=== PATIENT | male | born 1995 ===

== ENCOUNTER 2024-12-16 20:55 | Emergency (ER) | payer BC ==
[2024-12-16 21:00] VITALS: RESP 18
[2024-12-16] MEDS: KETOROLAC 15 MG/ML 1 ML VIAL IVP STA (21:34)
[2024-12-16] MEDS: LACTATED RINGERS 1,000 ML IV ONE (21:36)
--- NOTE | 2024-12-16 21:42 | ED ---
General Adult HPI - General Chief complaint: Urogenital Stated complaint: Blood in Urine Time Seen by Provider: 12/16/24 21:10 Source: patient, RN notes reviewed, old records reviewed Mode of arrival: ambulatory Limitations: no limitations - History of Present Illness Initial comments: Patient is a 29-year-old male who presents emergency department complaining of hematuria as well as abdominal pain. Has a history of UTIs. States this is si milar. History of cholecystectomy. No other significant past medical history. No concern for STDs. No history of STDs. Patient has noticed some increased urinary frequency, dysuria, hematuria ongoing for 1 day. Recent UTI and completed an entire course of antibiotics 2 to 3 weeks ago. Endorses some bilateral flank pain, right worse than left. Some bilateral back pain as well. Presents for further evaluation at this time. No history of kidney stones. Denies any nausea. Denies any diarrhea. Denies any fevers. Presents for further evaluation. - Related Data Previous Rx's Medication Instructions Recorded Ciprofloxacin HCl [Cipro] 500 mg PO Q12HR 7 Days #14 tab 12/16/24 Allergies Allergy/AdvReac Type Severity Reaction Status Date / Time No Known Allergies Allergy Verified 12/16/24 21:00 Review of Systems ROS Statement: Those systems with pertinent positive or pertinent negative responses have been documented in the HPI. Review of Systems: CONST: Denies fever EYES: Denies blurry vision ENT: Denies nasal congestion C/V: Denies Chest pain RESP: Denies shortness of breath GI: Endorses abdominal pain : Endorses dysuria SKIN: Denies rash. MSK: Denies joint pain. NEURO: Denies headache ROS Other: All systems not noted in ROS Statement are negative. Past Medical History Past Medical History: No Reported History History of Any Multi-Drug Resistant Organisms: None Reported Past Surgical History: Cholecystectomy Past Psychological History: No Psychological Hx Reported Smoking Status: Never smoker Past Alcohol Use History: None Reported Past Drug Use History: None Reported General Exam - General Exam Comments Initial Comments: General: Appears in no acute distress. HEAD: Normal with no signs of head trauma. EYES: EOMI ENT: Hearing grossly intact, normal oropharynx. RESPIRATORY: Clear breath sounds bilaterally. No wheezes, rales, or rhonchi. C/V: Regular rate and rhythm. S1 and S2 auscultated. ABD: Abdomen is soft, nondistended. Mildly tender to palpation in the suprapubic region as well as some mild tenderness with CVA percussion bilaterally. No guarding or rebound tenderness. No peritoneal signs. EXT: No obvious deformity SKIN: No rashes or lesions observed on exposed skin. NEURO: Alert and oriented x 4. Limitations: no limitations Course Vital Signs 12/16/24 12/16/24 20:58 23:37 Temperature 98 F 98.4 F Pulse Rate 84 76 Respiratory 18 18 Rate Blood Pressure 147/95 134/92 O2 Sat by Pulse 98 99 Oximetry Medical Decision Making - Medical Decision Making Was pt. sent in by a medical professional or institution (, [facility], [employer], urgent care, hospital, or intermediate...) When possible be specific @ -No Did you speak to anyone other than the patient for history (EMS, parent, family, police, friend...)? What history was obtained from this source @ -No Did you review nursing and triage notes (agree or disagree)? Why? @ -I reviewed and agree with nursing and triage notes Were old charts reviewed (outside hosp., previous admission, EMS record, old EKG, old radiological studies, urgent care reports/EKG's, intermediate records)? Report findings @ -No old charts were reviewed Differential Diagnosis (chest pain, altered mental status, abdominal pain women, abdominal pain men, vaginal bleeding, weakness, fever, dyspnea, syncope, headache, dizziness, GI bleed, back pain, seizure, CVA, palpatations, mental health, musculoskeletal)? @ -UTI, kidney stone, pyelonephritis, STI. This list is not all inclusive. EKG interpreted by me (3pts min.). @ -None done X-rays interpreted by me (1pt min.). @ -None done CT interpreted by me (1pt min.). @ -CT abdomen pelvis reveals no evidence of acute intra-abdominal process to explain the patient's urinary symptoms. U/S interpreted by me (1pt. min.). @ -None done What testing was considered but not performed or refused? (CT, X-rays, U/S, labs)? Why? @ -None What meds were considered but not given or refused? Why? @ -None Did you discuss the management of the patient with other professionals (professionals i.e. , PA, TRUCK FARMER, lab, RT, psych nurse, social service agency director, histologic aide, teacher, fire management officer, clinical case manager)? Give summary @ -No Was smoking cessation discussed for >3mins.? @ -No Was critical care preformed (if so, how long)? @ -No Were there social determinants of health that impacted care today? How? (Homelessness, low income, unemployed, alcoholism, drug addiction, transportation, low edu. Level, literacy, decrease access to med. care, prison, rehab)? @ -No Was there de-escalation of care discussed even if they declined (Discuss DNR or withdrawal of care, Hospice)? DNR status @ -No What co-morbidities impacted this encounter? (DM, HTN, Smoking, COPD, CAD, Cancer, CVA, ARF, Chemo, Hep., AIDS, mental health diagnosis, sleep apnea, morbid obesity)? @ -None Was patient admitted / discharged? Hospital course, mention meds given and route, prescriptions, significant lab abnormalities, going to OR and other pertinent info. @ -Patient presents with symptoms concerning for possible UTI, pyelonephritis, or kidney stone. No concern for STIs at this time. Patient. He is in a monogamous relationship with no history is of them. He is having hematuria, dysuria, as well as increased frequency. Vitals are within acceptable limits. We will obtain abdominal labs, urinary studies, as well as CT abdomen pelvis without contrast. He was in agreement this plan. Provided with 1 L fluid bolus as well as IV Toradol. CT returned unremarkable. Laboratory studies returned unremarkable except for hematuria. Suspect UTI as well considering the number of white blood cells present in his urine. I discussed results with patient. He expressed understanding. He will be given a dose of IV Rocephin as well as started on ciprofloxacin. I will send a pre scription for Cipro to his pharmacy. Urine culture will be sent. He was in agreement this plan. I will provide the patient with a prescription for ciprofloxacin. I instructed the patient to follow up with their PCP in the next 1-3 days. I provided contact information for follow up with urology. I explained that the patient should return to the emergency department if they experience any worsening symptoms. Strict return precautions were discussed with the patient. The patient expressed understanding of these instructions. I answered all questions that the patient had. The patient was discharged home in good condition with their prescriptions and follow up information. Undiagnosed new problem with uncertain prognosis? @ -No Drug Therapy requiring intensive monitoring for toxicity (Heparin, Nitro, Insulin, Cardizem)? @ -No Were any procedures done? @ -No Diagnosis/symptom? @ -UTI Acute, or Chronic, or Acute on Chronic? @ -Acute Uncomplicated (without systemic symptoms) or Complicated (systemic symptoms)? @ -Uncomplicated Side effects of treatment? @ -None Exacerbation, Progression, or Severe Exacerbation] @ -No Poses a threat to life or bodily function? @ -Unlikely at this time - Lab Data Result diagrams: 12/16/24 21:30 12/16/24 21:30 Lab Results 12/16/24 12/16/24 12/16/24 Range/Units 21:30 21: 21:30 WBC 7.04 (4.50-10.00) 10*3/uL RBC 5.53 (4.40-5.60) 10*6/uL Hgb 15.2 (13.0-17.0) g/dL Hct 45.4 (39.6-50.0) % MCV 82.1 (80.0-97.0) fL MCH 27.5 (27.0-32.0) pg MCHC 33.5 (32.0-37.0) g/dL Plt Count 234 (140-440) 10*3/uL MPV 9.8 (9.5-12.2) fL Immature Gran % (Auto) 0.1 % Neutrophils % 53.1 % Lymphocytes % 36.2 % Monocytes % 9.1 % Eosinophils % 1.4 % Basophils % 0.1 % Immature Gran # 0.01 (0.00-0.04) 10*3/uL Neutrophils # 3.73 (1.80-7.70) 10*3/uL Lymphocytes # 2.55 (0.90-5.00) 10*3/uL Monocytes # 0.64 (0.20-1.00) 10*3/uL Eosinophils # 0.10 (0.04-0.35) 10*3/uL Basophils # 0.01 (0.00-0.10) 10*3/uL Sodium 140 (137-145) mmol/L Potassium 4.7 (3.5-5.1) mmol/L Chloride 101 (98-107) mmol/L Carbon Dioxide 29 (22-30) mmol/L Anion Gap 10 mmol/L BUN 22 H (9-20) mg/dL Creatinine 1.21 (0.66-1.25) mg/dL Est GFR (CKD-EPI)AfAm >90 (>60 ml/min/1.73 sqM) Est GFR (CKD-EPI)NonAf 80 (>60 ml/min/1.73 sqM) Glucose 100 H (74-99) mg/dL Calcium 9.4 (8.4-10.2) mg/dL Total Bilirubin 1.0 (0.2-1.3) mg/dL AST 47 (17-59) U/L ALT 65 H (4-49) U/L Alkaline Phosphatase 46 (38-126) U/L Total Protein 7.4 (6.3-8.2) g/dL Albumin 4.4 (3.5-5.0) g/dL Lipase 101 (23-300) U/L Urine Color Red Urine Appearance Turbid (Clear) Ur Leukocyte Esterase Negative (Negative) Urine RBC >182 H (0-5) /hpf Urine WBC >182 H (0-5) /hpf Ur Squamous Epith Cells 14 H (0-4) /hpf Urine Bacteria Rare H (None) /hpf Urine Mucus Few H (None) /hpf Disposition Clinical Impression: UTI (urinary tract infection), Hematuria Disposition: HOME SELF-CARE Condition: Good Instructions (If sedation given, give patient instructions): Urinary Tract Infection in Men (ED) Prescriptions: Ciprofloxacin HCl [Cipro] 500 mg PO Q12HR 7 Days #14 tab Is patient prescribed a controlled substance at d/c from ED?: No Referrals: Adan Juarez MD [Primary Care Provider] - 1-2 days Rodrigo Farley MD [STAFF PHYSICIAN] - 1-2 days Time of Disposition: 23:28
[2024-12-16 21:44] LABS: Basophils # (A) 0.01 10*3/uL (0.00-0.10); Basophils % (A) 0.1 %; Eosinophils % (A) 1.4 %; HCT 45.4 % (39.6-50.0); HGB 15.2 g/dL (13.0-17.0); Lymphocytes # (A) 2.55 10*3/uL (0.90-5.00); Lymphocytes % (A) 36.2 %; MCH 27.5 pg (27.0-32.0); MCHC 33.5 g/dL (32.0-37.0); MCV 82.1 fL (80.0-97.0); Mean Platelet Volume 9.8 fL (9.5-12.2); Monocytes # (A) 0.64 10*3/uL (0.20-1.00); Monocytes % (A) 9.1 %; Neutrophils # (A) 3.73 10*3/uL (1.80-7.70); Neutrophils % (A) 53.1 %; Platelet Count 234 10*3/uL (140-440); RBC 5.53 10*6/uL (4.40-5.60); RDW 12.1 % (11.5-14.5); WBC 7.04 10*3/uL (4.50-10.00)
[2024-12-16 22:04] LABS: Bacteria,Urine Rare /hpf; Mucus,Urine Few /hpf; Squamous Epithelial Cell,Urine 14 /hpf (0-4)
[2024-12-16 22:06] LABS: ALT 65 U/L (4-49); AST 47 U/L (17-59); African American GFR (CKD) >90 (>60 ml/min/1.73 sqM); Albumin 4.4 g/dL (3.5-5.0); Alkaline Phosphatase 46 U/L (38-126); Anion Gap 10 mmol/L; Blood Urea Nitrogen 22 mg/dL (9-20); Calcium 9.4 mg/dL (8.4-10.2); Carbon Dioxide 29 mmol/L (22-30); Chloride 101 mmol/L (98-107); Glucose 100 mg/dL (74-99); Lipase 101 U/L (23-300); Non-African American GFR(CKD) 80 (>60 ml/min/1.73 sqM); Sodium 140 mmol/L (137-145); Total Protein 7.4 g/dL (6.3-8.2)
--- NOTE | 2024-12-16 22:07 | CT ---
EXAMINATION TYPE: CT abdomen pelvis wo con DATE OF EXAM: 12/16/2024 9:53 PM COMPARISON: None. CLINICAL INDICATION: Male, 29 years old with history of abdominal pain. dysuria. flank pain.; Patient states that has blood in his urine. Recent UTI. hx of cholecystectomy. TECHNIQUE: Axial CT abdomen pelvis wo con;Sagittal and coronal reformats were created on a separate workstation. Contrast used: mL of , (none if empty) Oral contrast used: without Oral Contrast (none if empty) CT DLP: 1056.2 mGycm, Automated exposure control for dose reduction was used. FINDINGS: LOWER CHEST: Unremarkable ABDOMEN LIVER: Unremarkable GALLBLADDER AND BILE DUCTS: The gallbladder is surgically absent. PANCREAS: Unremarkable. SPLEEN: Unremarkable. ADRENAL GLANDS: Unremarkable. KIDNEYS AND URETERS: No evidence of hydronephrosis or obstructing renal calculus. The ureters are unr emarkable. PELVIS BLADDER: No evidence for wall thickening or mass given limitations of exam. REPRODUCTIVE: Unremarkable. ABDOMEN & PELVIS STOMACH AND BOWEL: No evidence of bowel obstruction. Appendix is visualized and within normal limits. PERITONEUM/RETROPERITONEUM: No evidence of pneumoperitoneum or free fluid. VASCULATURE: No evidence of aortic aneurysm. MUSCULOSKELETAL: No acute osseous abnormalities LYMPH NODES: No gross evidence for lymphadenopathy. SOFT TISSUE/ABDOMINAL WALL: Right fat containing inguinal hernia. IMPRESSION: 1. No evidence for acute abdominal process. No evidence for obstructive uropathy or patulous. 2. Cholecystectomy changes. 3. Normal appendix. 4. Right fat containing hernia. [facility], , 12/16/2024 10:05 PM
[2024-12-16 22:15] LABS: Potassium 4.7 mmol/L (3.5-5.1)
[2024-12-16 22:58] LABS: Appearance,Urine Turbid (Clear); Color,Urine Red; Leukocyte Esterase,Urine Negative (Negative); RBC,Urine >182 /hpf (0-5); WBC,Urine >182 /hpf (0-5)
[2024-12-16] MEDS: CIPROFLOXACIN HCL 500 MG TAB PO STA (23:32)
[2024-12-16] MEDS: cefTRIAXone IN SWFI 1,000 MG/10 ML SYRINGE IVP STA (23:32)
[2024-12-16 23:39] VITALS: BP 134/92; PULSE 76; TEMP 98.4
== END 2024-12-16 23:38 | disposition home or self-care (01) ==
LOC: EC 20:55
DX: N39.0 Urinary tract infection, site not specified (principal)
CPT/HCPCS: 36415; 80053; 83690; 85025; 81001; 87086; 74176; 99284; 96374; 96375; 96361; J0696; J1885